=== PATIENT | female | born 2000 | race Two or more races ===

== ENCOUNTER 2021-09-24 17:14 | Observation (INO) ==
--- NOTE | 2021-09-24 20:43 | History & Physical Report ---
Date of Service September 24, 2021 Assessment & Plan (1) Uterine contractions: (2) 39 weeks gestation of : Plan will plan recheck cx in 2hr. no evidence of active labor. explained to pt def'n of active labor and parameters for admission. rec supportive measures. fhts categ 1. all communication done thru programming director services. they asked about pain medications and I explained not yet with dx for admission, can move around, take shower, bounce on ball, rocking chair for supportive measures and will need to reeval for active labor criteria. explained this is not active labor. they verbalized understanding. History of Present Illness Chief Complaint: contractions Primary Care Provider: NO PCP 20yo at 39wks egmarlon presents to L&D [facility] regular ctx and vaginal bleeding. Her care requires programming director services. She has painful ctx. Cx was 1cm per nurse on arrival. Now 2hr later for recheck. No rom. Still with some bleeding. Painful ctx. PNC c/b 1. tk in late preg from [place], limited records 2. ct pos, neg tk 3. Rh neg, had rhogam 4. beta thal PNL rh neg, ri, gbs neg OBH: g1 GYNH: nl paps no stds Allergies Allergy/AdvReac Type Severity Reaction Status Date / Time No Known Allergies Allergy Verified 09/18/21 14:29 Home Medications Medication Instructions Recorded Confirmed Type No Known Home Medications 08/30/21 09/18/21 History Patient History Family History (Updated 08/30/21 @ 17:40 by Carmen Childress) Mother Hypertension Social History (Updated 08/30/21 @ 17:25 by Carmen Childress) Smoking Status: Never smoker Hx Alcohol Use: No Hx Substance Use: No Preferred Language: Other Communication Ability: with ipad Communication Ability Comment: only can communicate with programming director, speaks NO spanish Production Foreman Required: Yes Beliefs That Will Affect Care: Taoism Taoism Beliefs: Patient is Voodoo and prefers only female providers. No pork or pork products. Pt aware that anesthesia is only male staff. Thinks she will try unmedicated delivery , Spiritual and Cultural marital status: Current Living Situation: Family Current Living Situation Comment: and 's nephew current occupational status: unemployed Assistive Devices: None Review of Systems as per Subjective / HPI Physical Exam Constitutional: WD/WN, vitals as above Gastrointestinal (Abdomen): soft gravid nt Musculoskeletal: no edema Neurologic: grossly normal Psychiatric: A+Ox3, euthymic affect Genitourinary: Manual OB Exam: + cervical dilation (2), + cervical effacement 90% and + station -2 OB Exam Monitor Tracing: + external FHT monitor used, + external uterine monitor used (q5-8), + category I and + normal FHT variability Results & [facility] ([facility]) Vital Signs (Past 12 Hours) Vital Signs Temp Pulse Resp BP 09/24/21 20:08 71 111/67 09/24/21 17:23 85 126/67 09/24/21 17:23 98.1 F 20 Coding Level of Care Code None Diagnoses Uterine contractions O47.9 39 weeks gestation of Z3A.39
[2021-09-24] MEDS ORDERED: PROMETHAZINE HCL INJ 25 MG/ML 1 ML VIAL IM STA (22:39)
[2021-09-24] MEDS ORDERED: MoRPHine SULFATE 10 MG/ML CARP/VIAL IM STA (22:39)
--- NOTE | 2021-09-24 22:51 | Obstetrical Progress Note ---
Date of Service September 24, 2021 Assessment & Plan (1) 39 weeks gestation of : (2) Uterine contractions: Plan no evidence of active labor. offered dc home vs. morphine rest. explained all to couple via preflight inspector. of note, when spouse not in room, nursing and I observing that she is less dramatic with her contractions, ie. pain. cx not changing signficantly over 4hr outpt status. after discussion, accept phenergan/morphine IM, explained would be 2 shots intramuscularly. If she was still not in active labor she would go home but goal would be to give her chance to get some rest/sleep in this early stage. fhts categ 1. can plan intermittent monitoring. Subjective pt with pain with ctx. q5-6 per nurse. no rom. Review of Systems Constitutional: as per Subjective / HPI Physical Exam Genitourinary: Manual OB Exam: + cervical dilation (2-3), + cervical effacement 90% and + station -2 OB Exam Monitor Tracing: + external FHT monitor used, + external uterine monitor used (q2-5. ), + category I and + normal FHT variability Results & Data ([facility]) Vital Signs (Past 12 Hours) Vital Signs Temp Pulse Resp BP 09/24/21 20:08 71 111/67 09/24/21 17:23 85 126/67 09/24/21 17:23 98.1 F 20 PG Care Time/CCT Total # of Minutes Spent Total Time Spent with Patient: Total time spent is greater than 50% in coordination of care (as documented) at patient's floor/unit and/or counseling patient: Coding Level of Care Code None Diagnoses 39 weeks gestation of Z3A.39 Uterine contractions O47.9
--- NOTE | 2021-09-25 04:50 | Labor Progress Brief Note ---
Date of Service September 25, 2021 Subjective now with ctx about q8-10min. when we are not in the room, pt quiet and probably having pain with ctx but when we are in the room, she is sitting bolt upright, thrashing, crying. offered cx check but she refuses. all discussion with gas appliance adjuster. Assessment & Plan (1) 39 weeks gestation of : (2) Uterine contractions: Plan no evidence of active labor. fhts categ 1. discussed normal s/sx of labor. bleeding we have seen is normal for latent labor. explained all to couple and then spoke to their physician in [facility]. explained without labor we cannot just keep her here, spouse threatening about care of his , explained at length that nothing to show she is in danger except for her her pain tolerance is poor but seems to worsen if we are in the room. nurses have noted to me she is quiet when we are out of room. either way if ctx spaced out there is no active labor. i offered to reexamine her cx multiple times and she refuses. he explains to me they are immigrants, they have transportation issues, they want to stay here for safety. i explained that this is not a hotel, this a hospital where i have to admit and care for active laboring patients and patients with scheduled events and that now over 10hr of watching her and offering her medication for rest, there is not active labor. when she is in active labor we will have staff and room for her but right now there is no active labor and they are discharged due to that and can call with absolutely anything concerning to them, poor movement, water breaking, closer and stronger ctx. we are able to evaluate and assess her in office if needed with any worsening sx. they have been well aware of parameters of active labor. she can go home and rest in her own environment and eat something etc. I have given her pain relief and rest with morphine. i have explained to the couple that i realize she has pain with the ctx but actually it is likely that her pain will need to be worse with each contraction to active cause dilation. I expressed empathy that she is having pain but also explained that is normal for labor as well and we have watched her for 10hr and she is not having inordinate pain for which we worry something else is going on. we would expect that if something changes that she calls us so we can reevaluate her, again poor movement, rom, worsening regular ctx. that is what we are here for. he asks me if i can guarantee if i send them home that nothing untoward will happen to her or their baby and I said no i cannot make any guarantees for them or their nor can i make that same guarantee to any patient. currently her status is such that she is stable for discharge home and that we all realize that any status can change and they need to let us know about such s/sx. all of which were reviewed with her and spouse at length. we cannot just keep people in hospital setting because they want to stay. this was gone over multiple times, at all times with gas appliance adjuster. in course of this discussion there were many minutes after we had taken her off the monitor where she did not make any noise to indicate she was in pain, she got up easily out of bed, got dressed, no indication of pain, at least that was regular enough to be considered likely active labor. again she would not let me examine her cervix. ultimately she gave us number for her transportation who would meet couple at ER entrance to go home. I did tell spouse at some point when he asked who he can complain to that there is a service excellence number for him to call and complain. they have appointments in office this week. >1hr spent at bedside with this patient. Physical Exam Constitutional: WD/WN, vitals as above Gastrointestinal (Abdomen): soft gravid nt Neurologic: grossly normal Psychiatric: A+Ox3, euthymic affect Genitourinary: OB Exam Monitor Tracing: + external FHT monitor used, + external uterine monitor used (q8-10, mild to palpation per nurse), + category I (nst reactive. ) and + normal FHT variability Results & Data ([facility]) Vital Signs (Past 12 Hours) Vital Signs Temp Pulse Resp BP O2 Del Method 09/25/21 01:10 Room Air 09/24/21 20:08 71 111/67 09/24/21 17:23 85 126/67 09/24/21 17:23 98.1 F 20 Coding Level of Care Code D/C DAY MANAGEMENT >30 MINS Diagnoses 39 weeks gestation of Z3A.39 Uterine contractions O47.9 Comment need to bill yesterday 09/24 with initial observation codes level 2.
== END 2021-09-25 05:00 | disposition home or self-care (01) ==
LOC: OPB 17:14 → EDINP 17:14 → 4S1 17:14 → EDINP 17:18 → 4S1 17:18 → OPB 09-25 05:00

== ENCOUNTER 2021-09-25 10:10 | Inpatient (IN) ==
[2021-09-25] MEDS ORDERED: OXYTOCIN 30 UNITS/500 ML BAG IV PRN ×2 (10:19→16:25)
[2021-09-25] MEDS: LACTATED RINGER'S 1,000 ML IV PRN ×4 (10:20→11:32)
[2021-09-25] MEDS ORDERED: ePHEDrine sulfate 50 MG/ML AMP ONE (10:27)
[2021-09-25] MEDS ORDERED: LIDOCAINE 2%/EPINEPHRINE 1:200,000 20 ML SDV ONE (10:28)
[2021-09-25] MEDS ORDERED: SODIUM CHLORIDE 0.9% INJ 10 ML VIAL ONE (10:28)
[2021-09-25] MEDS ORDERED: fentaNYL citrate 100 MCG/2 ML VIAL ONE (10:28)
[2021-09-25] MEDS ORDERED: BUPIVACAINE 0.25% 30 ML VIAL ONE (10:28)
[2021-09-25] MEDS ORDERED: fentaNYL 2MCG/ML ROPIVACAINE 1.25MG/ML 100 ML BAG EPI ONE (10:29)
--- NOTE | 2021-09-25 10:29 | History & Physical Report ---
Date of Service September 25, 2021 Assessment & Plan (1) Normal labor: Plan: IUP at 39 weeks in active labor requesting epidural analgesia anticipate vaginal History of Present Illness Primary Care Provider: NO PCP Patient is a 20 yo female EDC 09/29/21 who presents in active labor with regular contractions every 2-4 minutes for the last several hours. She is a late transfer of care as she is an [place] refugee who arrived in a center in [place] then moved to the [facility]. She did receive care in [facility] then in [place] prior to moving to our area. Chlamydia was positive but post treatment cultures were negative in August. GBS negative. Allergies Allergy/AdvReac Type Severity Reaction Status Date / Time No Known Allergies Allergy Verified 09/18/21 14:29 Home Medications Medication Instructions Recorded Confirmed Type No Known Home Medications 08/30/21 09/18/21 History Patient History Family History (Updated 08/30/21 @ 17:40 by Carmen Childress) Mother Hypertension Social History (Updated 08/30/21 @ 17:25 by Carmen Childress) Smoking Status: Never smoker Hx Alcohol Use: No Hx Substance Use: No Preferred Language: Other Communication Ability: with ipad Qa Tech Required: Yes Beliefs That Will Affect Care: Religion Religion Beliefs: Patient is Catholic and prefers only female providers. No pork or pork products. Pt aware that anesthesia is only male staff. Thinks she will try unmedicated delivery , Spiritual and Cultural marital status: Current Living Situation: Family Current Living Situation Comment: and 's nephew current occupational status: unemployed Assistive Devices: None Review of Systems All systems reviewed & are unremarkable except as noted in HPI & below Physical Exam Constitutional: WD/WN, vitals as above Psychiatric: A+Ox3, euthymic affect Genitourinary: OB Exam Abdomen: + vertex and + regular contractions (Q2-4 minutes) Manual OB Exam: + cervical dilation 6 cm, + cervical effacement 100% and + station -1 OB Exam Monitor Tracing: + external FHT monitor used, + external uterine monitor used, + category I and + normal FHT variability Code Status & VTE Plan VTE Prophylaxis Plan VTE Prophylaxis will be ordered: No Coding Level of Care Code None Diagnoses Normal labor O80; Z37.9
--- NOTE | 2021-09-25 10:45 | Anesthesiology Consultation ---
Date of Service September 25, 2021 Assessment & Plan (1) Encounter for pre-operative examination: Chart Review Chart Review: Patient NOT seen in Pre Admission Testing and Acceptable Risk for Labor Epidural Consults Requested none History Allergies Allergy/AdvReac Type Severity Reaction Status Date / Time No Known Allergies Allergy Verified 09/18/21 14:29 Medications Home Medications Medication Instructions Recorded Confirmed Last Taken No Known Home Medications 08/30/21 09/18/21 Unknown Active Medications Generic Name Dose Route Start Last Admin Trade Name Freq PRN Reason Stop Dose Admin Lactated Ringer's 1,000 mls @ 125 mls/hr 09/25/21 10:19 09/25/21 10:20 Lr IV 09/27/21 10:18 999 mls/hr .Q8H PRN Administration L&D Protocol Protocol Past Medical History Medical History (Updated 09/25/21 @ 10:45 by Delmar Shabazz MD) Beta thalassemia, heterozygous Exercise / Class Metabolic Activity II 4-5 Yardwork/Stairs/Walk up hill Past Family History Family History Mother Hypertension Past Anesthesia History No Hx of Anesthesia Complications and No Family Hx of Anesthesia Complications History of PONV No Hx of PONV and No Hx of Motion Sickness Social History Smoking Status: Never smoker Hx Alcohol Use: No Hx Substance Use: No Physical Exam Vital Signs Last Vital Signs Temp 36.5 C 09/25/21 10:24 Pulse 76 09/25/21 11:03 Resp 18 09/25/21 10:24 BP 136/85 09/25/21 11:03 Pulse Ox 100 09/25/21 11:01 Testing Laboratory Results 09/25/21 10:35
[2021-09-25 10:47] LABS: Hematocrit (blood only) 33.9 % (34.1-44.9); Hemoglobin 10.5 g/dl (12.0-16.0); Mean Corpuscular Hemoglobin 19.6 pg (25.0-34.0); Mean Corpuscular Volume 63.2 fL (80.0-100.0); RDW Coefficient of Variation 16.3 % (11.5-14.5); RDW Standard Deviation 35.9 fL (36.4-46.3); Red Blood Count 5.36 M/uL (3.93-5.22); White Blood Count 12.97 K/ul (4.8-10.8)
[2021-09-25] MEDS ORDERED: diphenhydrAMINE 50 MG/ML VIAL IV PRN (11:10)
[2021-09-25] MEDS ORDERED: NALOXONE HCL 1 MG in SODIUM CHLORIDE 0.9% 1000ML 1,000 ML IV PRN (11:10)
[2021-09-25] MEDS ORDERED: ONDANSETRON INJ 2 MG/ML 2 ML VIAL IV PRN (11:10)
[2021-09-25] MEDS ORDERED: NALBUPHINE HCL INJ 10 MG/ML AMP IV PRN (11:10)
[2021-09-25] MEDS ORDERED: ePHEDrine sulfate 50 MG/ML AMP IV PRN (11:10)
[2021-09-25] MEDS ORDERED: fentaNYL 2MCG/ML ROPIVACAINE 1.25MG/ML 100 ML BAG EPI PRN (11:10)
[2021-09-25] MEDS ORDERED: NALOXONE HCL 0.4 MG/1 ML VIAL/CARP IV PRN (11:10)
[2021-09-25 11:22] LABS: Platelet Count 185 K/uL (130-400)
[2021-09-25] MEDS ORDERED: SODIUM CHLORIDE 0.9% 250 ML IV PRN (12:21)
[2021-09-25] MEDS ORDERED: BENZOCAINE 20% AER SPR 82.5 GM CAN EXT PRN (16:25)
[2021-09-25] MEDS ORDERED: bisacodyL 10 MG SUPP PR PRN (16:25)
[2021-09-25] MEDS ORDERED: oxyCODONE/ACETAMINOPHEN 5mg/325mg TAB PO PRN (16:25)
[2021-09-25] MEDS ORDERED: DIPHTHERIA/TETANUS/PERTUSSIS 0.5 ML SYR/VIAL IM ONE (16:25)
[2021-09-25] MEDS ORDERED: ACETAMINOPHEN 325 MG TAB PO PRN (16:25)
[2021-09-25] MEDS ORDERED: HYDROCORTISONE ACETATE 25 MG SUPP PR PRN (16:25)
--- NOTE | 2021-09-25 16:34 | Anesthesia Procedure Note ---
Date of Service September 25, 2021 Anesthesia Post Epidural Note Vital Signs Vital Signs: Temp Pulse Resp BP Pulse Ox 36.5 C 57 L 24 109/68 98 09/25/21 11:03 09/25/21 13:01 09/25/21 11:03 09/25/21 12:52 09/25/21 13:01 Pain Intensity Lower Medial Abdomen: Pain Intensity: 8 Lower Medial Perineal: Pain Intensity: 8 Notes Mental Status: alert / awake / arousable and participated in evaluation Nausea / Vomiting: adequately controlled Pain: adequately controlled Airway Patency, RR, SpO2: stable & adequate BP & HR: stable & adequate Hydration State: stable & adequate Neuraxial Anesthesia: was administered and sensory block is resolving Anesthetic Complications: no major complications apparent and Pt Satisfied with anesthetic care Epidural: Removed without complications and With tip intact
[2021-09-25] MEDS ORDERED: Patient's HEIGHT &/or WEIGHT Needed SCH (16:45)
[2021-09-25] MEDS: IBUPROFEN 600 MG TAB PO PRN ×2 (16:50→22:32)
--- NOTE | 2021-09-25 17:25 | Delivery Summary ---
Vaginal Delivery Summary Date of Service September 25, 2021 Vaginal Delivery Summary VAVD and 3rd Degree LAC (partial) Patient is a 20-year-old [place] refugee who transferred care late in presents in active labor at 39 weeks gestation. EDC is 09/29/2021 and she did have care throughout her . She received an epidural analgesia which was effective she progressed to full dilation but did not push effectively and eventually because of maternal exhaustion she was offered the vacuum- assisted delivery. Presenting part was at +2 station. After her bladder was emptied for a small amount of concentrated urine, the vacuum was placed on the vertex. Through 3 pushes the vertex was brought to [facility] and delivered. A loose nuchal cord was reduced after delivering the head. Rest of the infant delivered easily and placed on the mother's abdomen for further attention and drying. The cord was clamped and cut. The placenta was expressed intact with a three-vessel cord. A partial third-degree laceration was repaired with 2-0 Vicryl and 3-0 chromic in the usual fashion. Rectum was intact and no stitches in the rectal mucosa. bleeding was controlled with dilute Pitocin and fundal massage. Estimated blood loss was 300 cc. Mother and infant were doing well after delivery. [facility] Delivery Charge Delivery Type Details: VAVD and 3rd Degree LAC (partial)
[2021-09-25] MEDS: DOCUSATE SODIUM 100 MG CAP PO SCH (20:26)
[2021-09-25 22:24] LABS: Appearance Urine Clear (Clear); Bacteria Urine Automated Negative (Negative); Bilirubin Urine Negative (Negative); Blood Urine 2+ (Negative); Color Urine Yellow; Glucose Urine UA Negative (Negative); Ketones Urine Negative (Negative); Leukocyte Esterase Urine Trace (Negative); Nitrite Urine Negative (Negative); Protein Urine Negative (Negative); Urobilinogen Urine Negative (Negative)
[2021-09-26] MEDS: IBUPROFEN 600 MG TAB PO PRN ×4 (04:38→23:30)
[2021-09-26] MEDS: ACETAMINOPHEN 325 MG TAB PO PRN ×2 (04:43→14:21)
[2021-09-26 06:50] LABS: Hematocrit (blood only) 25.8 % (34.1-44.9); Hemoglobin 8.1 g/dl (12.0-16.0); Mean Corpuscular Hemoglobin 19.7 pg (25.0-34.0); Mean Corpuscular Hgb Conc 31.4 g/dL (32.0-36.0); Mean Corpuscular Volume 62.8 fL (80.0-100.0); Platelet Count 134 K/uL (130-400); Platelet Estimate Decreased (Normal); RDW Standard Deviation 35.3 fL (36.4-46.3); Red Blood Count 4.11 M/uL (3.93-5.22); White Blood Count 13.21 K/ul (4.8-10.8)
--- NOTE | 2021-09-26 07:51 | Obstetrical Progress Note ---
Date of Service September 26, 2021 Assessment & Plan (1) Encounter for care and examination after delivery: satisfactory course continue current care plan Subjective Ambulation: ambulating normally Voiding: no voiding problems Passing Gas:: Yes Diet Tolerance:: regular diet Lochia:: Moderate Feeding Type:: breast feeding Review of Systems All systems reviewed & are unremarkable except as noted in HPI & below Physical Exam Constitutional WD/WN, vitals as above Psychiatric A+Ox3, euthymic affect Genitourinary OB Exam Abdomen: + fundal height Fundus: + firm and + relation to umbilicus (1 below U) Results & Data ([facility]) Vital Signs (Past 12 Hours) Vital Signs Temp Pulse Resp BP Pulse Ox O2 Del Method 09/26/21 03:45 98.8 F 78 18 96/57 L 97 Room Air 09/26/21 00:40 98.1 F 81 18 94/58 L 98 Room Air 09/25/21 22:00 98.2 F
[2021-09-26] MEDS: DOCUSATE SODIUM 100 MG CAP PO SCH ×2 (08:00→20:14)
[2021-09-26] MEDS: PRENATAL VITAMIN 1 TAB PO SCH (08:00)
[2021-09-26] MEDS ORDERED: bisacodyL 5 MG TABEC PO SCH (20:00)
--- NOTE | 2021-09-27 05:28 | Obstetrical Progress Note ---
Date of Service <Dedra ColeJosefina Fink - Last Filed: 09/27/21 06:29> September 27, 2021 Assessment & Plan <Dedra Callesmarciacarolyn DO - Last Filed: 09/27/21 06:29> (1) 39 weeks gestation of : Patient is PPD day 2 s/p VAVD and doing well. - Feels alright today. Eating well, voiding well, ambulating well - Pain well controlled with ibuprofen 600 mg Q4H PRN - OOB, ambulation, diet progression as tolerated - Plan to discharge today (Pt requests after 11 AM) - After discharge, 6 [address] up [address] Dr[address] Thompson <Libertad Reddy, DO - Last Filed: 09/27/21 07:41> (1) 39 weeks gestation of : Subjective <Dedra Callescecilia DO - Last Filed: 09/27/21 06:29> Cheri Ramirez is a 20 yo female who is now PPD #2 following vacuum assisted vaginal delivery at 39 weeks. Reports feeling well this morning but has "pain all over." Pain well managed on analgesics. Voiding well. Tolerating meals overnight and able to ambulate some. Has not been passing gas and no bowel movements. Some persistent lochia with some improvement this morning. Currently breast feeding. Review of Systems Denies fever, chills, sweats. Denies SOB, difficulty breathing, chest pain, palpitations, and chest pressure. Denies breast pain. Denies dysuria. Denies headache or changes in vision. Physical Exam <Dedra Eliecer Fink DO - Last Filed: 09/27/21 06:29> General: Alert and oriented. No acute distress. CV: Regular rate and rhythm. No murmurs. Respiratory: CTA bilaterally. No rhonchi, wheezes, or crackles. No increased work of breathing. Abdomen: Positive bowel sounds. Soft, nontender, non distended. Uterus: Fundus firm and palpable 3 cm below the umbilicus. Lower extremities: No LE edema. No deep calf pain. Ly's negative bilaterally. Results & Data ([facility]) <Dedra Eliecer Fink DO - Last Filed: 09/27/21 06:29> Vital Signs (Past 12 Hours) Vital Signs Temp Pulse Resp BP 09/26/21 23:00 36.7 C 72 18 115/76 09/26/21 20:00 36.9 C 80 16 105/64 <Libertad Reddy DO - Last Filed: 09/27/21 07:41> Co-Signing Physician Notes Resident Physician Supervision Note: I was present with Dr. Fink during the history and exam. I discussed the case with the resident and agree with the findings and plan as documented in the note. Any exceptions or clarifications are listed here: PPD#2 doing well, plan for DC home today. Followup 6w PP in office. Documented By: Libertad Reddy DO Resident Activity Tracking <Dedra Fink, - Last Filed: 09/27/21 06:29> Resident Involvement: Resident Care Provided Care Provided: OB Delivery
[2021-09-27 06:12] LABS: Hematocrit (blood only) 25.4 % (34.1-44.9); Hemoglobin 7.8 g/dl (12.0-16.0)
[2021-09-27] MEDS: PRENATAL VITAMIN 1 TAB PO SCH (08:27)
[2021-09-27] MEDS: DOCUSATE SODIUM 100 MG CAP PO SCH (08:27)
[2021-09-27] MEDS: IBUPROFEN 600 MG TAB PO PRN (10:22)
== END 2021-09-27 13:05 | disposition home or self-care (01) | DRG 768 ==
LOC: OPB 10:10 → 4S1 10:14 → 4E2 18:05